=== PATIENT | female | born 1990 | race Caucasian/White ===

== ENCOUNTER 2021-07-23 19:36 | Emergency (ER) | payer OTHER ==
[2021-07-23 19:48] VITALS: BP 104/69; PULSE 112; BMI 26.6
[2021-07-23 19:49] VITALS: TEMP 98.6
[2021-07-23] MEDS ORDERED: SODIUM CHLORIDE 0.9% 500 ML INFUS.BAG IV ONE (20:53)
[2021-07-23] MEDS ORDERED: ACETAMINOPHEN 1000 MG/100 ML BAG IVPB ONE (20:54)
[2021-07-23] MEDS ORDERED: ACETAMINOPHEN INJECTION 100 ML IVPB ONE (21:44)
[2021-07-23 21:45] LABS: URINE APPEARANCE Error; URINE BILIRUBIN NEGATIVE (NEGATIVE); URINE COLOR YELLOW; URINE GLUCOSE (UA) 1+ (NEGATIVE); URINE KETONE TRACE (NEGATIVE); URINE LEUK ESTERASE NEGATIVE (NEGATIVE); URINE NITRITE NEGATIVE (NEGATIVE); URINE PROTEIN NEGATIVE (NEGATIVE); URINE UROBILINOGEN 0.2 mg/dL (0.2-1.0)
[2021-07-23 21:55] LABS: HCG,QUALITATIVE URINE Positive
[2021-07-23 23:14] LABS: BASO % 0.5 % (0-2.0); EOS % 0.1 % (0-4.5); HEMATOCRIT 35.3 % (32.4-45.2); HEMOGLOBIN 11.6 GM/dL (10.7-15.3); LYMPH % 15.7 % (8-40); MCH 25.9 pg (25.7-33.7); MCHC 32.9 g/dl (32.0-36.0); MEAN CELL VOLUME 78.5 fl (80-96); MEAN PLT VOLUME 8.3 fl (7.5-11.1); MONO % 11.4 % (3.8-10.2); NEUT % 72.3 % (42.8-82.8); PLATELET COUNT 196 10^3/uL (134-434); RBC 4.49 M/mm3 (3.60-5.2); RDW 19.4 % (11.6-15.6); WHITE BLOOD COUNT 10.3 K/mm3 (4.0-10.0)
[2021-07-23] MEDS ORDERED: morphine CARPU-JECT 2 MG/1 ML DISP.SYRIN IVPUSH ONE (23:33)
[2021-07-23 23:35] LABS: CALCIUM 8.7 mg/dL (8.5-10.1)
[2021-07-23 23:36] LABS: ALBUMIN 2.6 g/dl (3.4-5.0); BLOOD UREA NITROGEN 9.2 mg/dL (7-18)
[2021-07-23 23:39] LABS: CREATININE 0.6 mg/dL (0.55-1.3)
[2021-07-23 23:40] LABS: TOT PROT 6.8 g/dl (6.4-8.2)
[2021-07-23 23:41] LABS: BILIRUBIN,TOTAL 0.3 mg/dL (0.2-1)
== END 2021-07-24 00:22 | disposition home or self-care (01) ==
LOC: JER 19:36
PROC: 3E033NZ Introduction of Analgesics, Hypnotics, Sedatives into Peripheral Vein, Percutaneous Approach (ICD-10-PCS; principal; 2021-07-23)
PROC: 3E033GC Introduction of Other Therapeutic Substance into Peripheral Vein, Percutaneous Approach (ICD-10-PCS; 2021-07-23)
DX: D25.9 Leiomyoma of uterus, unspecified (principal)
CPT/HCPCS: 36415; 76856-TC; 80053; 81003; 84703; 85025; 87086; 99284-25; J0131

== ENCOUNTER 2022-01-09 05:30 | Inpatient (IN) | payer OTHER ==
[~2022-01-09 05:30] MED LIST: ELECTROLYTE-148 SOLN 1,000 ML IV SCH
[2022-01-09 06:40] VITALS: BMI 32.3
[2022-01-09 06:45] LABS: BASO % 0.1 % (0-2.0); EOS % 0.1 % (0-4.5); HEMATOCRIT 39.4 % (32.4-45.2); LYMPH % 9.4 % (8-40); MCH 27.8 pg (25.7-33.7); MCHC 32.9 g/dl (32.0-36.0); MEAN CELL VOLUME 84.5 fl (80-96); MEAN PLT VOLUME 9.4 fl (7.5-11.1); MONO % 7.3 % (3.8-10.2); NEUT % 83.1 % (42.8-82.8); PLATELET COUNT 176 10^3/uL (134-434); RBC 4.66 M/mm3 (3.60-5.2); RDW 14.5 % (11.6-15.6); WHITE BLOOD COUNT 13.4 K/mm3 (4.0-10.0)
[2022-01-09 06:54] LABS: INR 0.9 (0.83-1.09); PROTHROMBIN TIME (PATIENT) 10.3 SEC (9.7-13.0)
[2022-01-09] MEDS: VANCOMYCIN IVPB SCH ×2 (06:55→16:20)
[2022-01-09] MEDS: WATER IVPB SCH ×2 (06:55→16:20)
[2022-01-09] MEDS: [UNRECOGNIZED DRUG - OTHER] IVPB SCH ×2 (06:55→16:20)
[2022-01-09 06:57] LABS: ACTIVATED PTT 29.4 SECONDS (25.2-36.5)
[2022-01-09 07:10] LABS: CALCIUM 9.3 mg/dL (8.5-10.1)
[2022-01-09 07:11] LABS: BLOOD UREA NITROGEN 7.1 mg/dL (7-18)
[2022-01-09 07:14] LABS: CREATININE 0.7 mg/dL (0.55-1.3)
[2022-01-09] MEDS ORDERED: ELECTROLYTE-148 SOLN 1,000 ML IV SCH (07:15)
[2022-01-09] MEDS ORDERED: FENTANYL/BUPIVACAINE/NS/PF - PCEA - 50 ML DISP.SYRIN EP ONE (07:27)
[2022-01-09] MEDS ORDERED: NALOXONE HCL 0.4 MG/ML VIAL IVPUSH PRN (08:14)
[2022-01-09] MEDS ORDERED: IBUPROFEN 800 MG/8 ML IJ IVPB PRN (08:26)
[2022-01-09] MEDS ORDERED: SIMETHICONE 80 MG TAB.CHEW (FP) PO PRN (08:26)
[2022-01-09] MEDS ORDERED: ACETAMINOPHEN 325 MG TABLET (FP) PO PRN (08:26)
[2022-01-09] MEDS ORDERED: METHYLERGONOVINE MALEATE 0.2 MG/1 ML AMP IM PRN (08:26)
[2022-01-09] MEDS ORDERED: FENTANYL/BUPIVACAINE/NS/PF - PCEA - 50 ML DISP.SYRIN EP SCH (08:30)
[2022-01-09] MEDS ORDERED: morphine SULFATE/PF 1 MG/2 ML (2cc Syringe - QUVA) ONE (08:34)
[2022-01-09] MEDS ORDERED: PHENYLEPHRINE HCL 10 MG/1 ML SINGLE DOSE VIAL ONE (08:35)
[2022-01-09] MEDS ORDERED: CITRIC ACID/SODIUM CITRATE 30 ML UNIT-DOSE CUP PO ONE (08:43)
[2022-01-09] MEDS ORDERED: ACETAMINOPHEN 1000 MG/100 ML BAG IVPB PRN (09:38)
[2022-01-09] MEDS ORDERED: OXYTOCIN 10 UNITS/ML VIAL ONE (09:42)
[2022-01-09] MEDS ORDERED: LACTATED RINGERS SOLUTION 1,000 ML IV SCH (09:45)
[2022-01-09] MEDS ORDERED: OXYTOCIN 20 UNITS in 0.9% NS 20 UNIT/1,000 ML INFUS.BAG IV ONE (09:59)
[2022-01-09] MEDS: OXYTOCIN 20 UNITS in 0.9% NS 20 UNIT/1,000 ML INFUS.BAG IV SCH ×2 (10:00→17:44)
[2022-01-09 10:06] LABS: CORD HCO3 23.6 mmHg (20-29); CORD PCO2 52.9 mmHg (30-78); CORD pH 7.268 (7.14-7.44)
[2022-01-09 10:07] LABS: CORD BASE EXCESS -1.9 mmol/L (0-2); CORD HCO3 23.6 mmHg (20-29); CORD PCO2 43.4 mmHg (30-78); CORD pH 7.354 (7.14-7.44)
[2022-01-09] MEDS: PRENATAL VITAMINS W/ FOLIC ACID TABLET (FP) PO SCH (10:53)
[2022-01-09] MEDS: FERROUS SO4 325 MG TABLET (FP) PO SCH ×2 (10:54→21:21)
[2022-01-10 08:05] LABS: BASO % 0.2 % (0-2.0); EOS % 0.2 % (0-4.5); HEMATOCRIT 37.5 % (32.4-45.2); LYMPH % 9.8 % (8-40); MCH 27.4 pg (25.7-33.7); MCHC 32.1 g/dl (32.0-36.0); MEAN CELL VOLUME 85.4 fl (80-96); MEAN PLT VOLUME 8.9 fl (7.5-11.1); MONO % 10.1 % (3.8-10.2); NEUT % 79.7 % (42.8-82.8); PLATELET COUNT 191 10^3/uL (134-434); RDW 14.6 % (11.6-15.6); WHITE BLOOD COUNT 18.8 K/mm3 (4.0-10.0)
[2022-01-10] MEDS ORDERED: BISACODYL 10 MG SUPP.RECT RC PRN (08:26)
[2022-01-10] MEDS: FERROUS SO4 325 MG TABLET (FP) PO SCH ×2 (10:28→21:38)
[2022-01-10] MEDS: PRENATAL VITAMINS W/ FOLIC ACID TABLET (FP) PO SCH (10:28)
[2022-01-10] MEDS: IBUPROFEN 600 MG TABLET (FP) PO PRN ×3 (10:28→21:39)
[2022-01-10 15:29] VITALS: RESP 18
[2022-01-10] MEDS: SENNOSIDES/DOCUSATE COMBO (SENNA PLUS) TABLET (UD) PO PRN (21:38)
[2022-01-11] MEDS: oxyCODONE HCL 5 MG TABLET PO PRN ×2 (09:11→12:42)
[2022-01-11] MEDS: PRENATAL VITAMINS W/ FOLIC ACID TABLET (FP) PO SCH (09:12)
[2022-01-11] MEDS: FERROUS SO4 325 MG TABLET (FP) PO SCH ×2 (09:12→21:18)
[2022-01-11 10:09] VITALS: TEMP 98.1
[2022-01-11 10:37] LABS: POC NITRAZINE POS
[2022-01-11] MEDS ORDERED: CEFAZOLIN 1 GM in DEXTROSE 5%-WATER - 50 ML IVPB SCH (12:00)
[2022-01-11] MEDS: POLYETHYLENE GLYCOL (HEALTHYLAX) 3350 17 GM PACKET PO SCH (12:43)
[2022-01-11] MEDS: CLINDAMYCIN 600MG PREMIX IVPB 600 MG/50 ML BAG IVPB SCH ×2 (13:12→18:11)
[2022-01-11] MEDS: IBUPROFEN 600 MG TABLET (FP) PO PRN (16:51)
[2022-01-11] MEDS: SENNOSIDES/DOCUSATE COMBO (SENNA PLUS) TABLET (UD) PO PRN (21:18)
[2022-01-12] MEDS: oxyCODONE HCL 5 MG TABLET PO PRN ×2 (00:49→10:16)
[2022-01-12] MEDS: CLINDAMYCIN 600MG PREMIX IVPB 600 MG/50 ML BAG IVPB SCH ×2 (01:24→10:00)
[2022-01-12 08:31] LABS: BASO % 0.5 % (0-2.0); EOS % 2.9 % (0-4.5); HEMOGLOBIN 10.6 GM/dL (10.7-15.3); LYMPH % 21.8 % (8-40); MCH 28.2 pg (25.7-33.7); MCHC 33.2 g/dl (32.0-36.0); MEAN PLT VOLUME 8.2 fl (7.5-11.1); MONO % 11.6 % (3.8-10.2); NEUT % 63.2 % (42.8-82.8); PLATELET COUNT 186 10^3/uL (134-434); RBC 3.76 M/mm3 (3.60-5.2); RDW 14.9 % (11.6-15.6); WHITE BLOOD COUNT 9.7 K/mm3 (4.0-10.0)
[2022-01-12 09:25] VITALS: BP 96/63; PULSE 91
[2022-01-12] MEDS: PRENATAL VITAMINS W/ FOLIC ACID TABLET (FP) PO SCH (09:59)
[2022-01-12] MEDS: FERROUS SO4 325 MG TABLET (FP) PO SCH (09:59)
[2022-01-12] MEDS: POLYETHYLENE GLYCOL (HEALTHYLAX) 3350 17 GM PACKET PO SCH (10:00)
== END 2022-01-12 14:05 | disposition home or self-care (01) | DRG 540 ==
LOC: JLDR 05:30 → J3W 12:22
PROVIDERS: ADMIT Obstetrics & Gynecology; ATTEND Obstetrics & Gynecology
PROC: 10D00Z1 Extraction of Products of Conception, Low, Open Approach (ICD-10-PCS; principal; 2022-01-09)
PROC: 0UB90ZZ Excision of Uterus, Open Approach (ICD-10-PCS; 2022-01-09)
DX: O76 Abnormality in fetal heart rate and rhythm complicating labor and delivery (principal); O48.0 Post-term pregnancy; O42.02 Full-term premature rupture of membranes, onset of labor within 24 hours of rupture; O99.824 Streptococcus B carrier state complicating childbirth; B95.1 Streptococcus, group B, as the cause of diseases classified elsewhere; O77.0 Labor and delivery complicated by meconium in amniotic fluid; O34.13 Maternal care for benign tumor of corpus uteri, third trimester; D25.9 Leiomyoma of uterus, unspecified; Z86.16 Personal history of COVID-19; Z3A.40 40 weeks gestation of pregnancy; Z37.0 Single live birth
CPT/HCPCS: 36415; 36600; 59025; 80048; 80307; 82803; 83986-QW; 85025; 85610; 85730; 86780; 86850; 86900; 86901; 88305-TC; 88307-TC; C9803-CS; J3370; U0003; U0005